=== PATIENT | male | born 1940 | race Caucasian/White ===

== ENCOUNTER → 2019-01-21 10:41 | Outpatient (CLI) | payer MEDICARE, SELFPAY ==
--- NOTE | 2019-01-21 10:45 | AS_ITS ---
Renal Arterial Duplex Indications: 405.91 Unspecified renovascular hypertension. Elevated kidney function IMPRESSIONS 1. Normal bilateral renal artery evaluation. 2. 2.6 cm indeterminant lesion seen left kidney mid pole, suggest CT without and with contrast with delayed images. Bilateral cortical thinning and scarring History: Risk factors: Extobacco use. Hypertension. Coronary artery disease. Complete renal arterial duplex. Duplex scan and Doppler flow study including spectral analysis, color and haines scale imaging. Height: Height: 172.7cm. Height: 68in. Weight: Weight: 80.7kg. Weight: 177.6lb. Body mass index: BMI: 27.1kg/m^2. Body surface area: BSA: 1.98m^2. Location: Vascular laboratory. Patient status: Outpatient. Findings: Cyst in the right mid pole cortex. Dimensions: 1cm (L). Tables: Arterial flow: + +--------+--------+ Location V sys V ed + +--------+--------+ Right renal - proximal 135cm/s 49.9cm/s + +--------+--------+ Right renal - mid 132cm/s 51.6cm/s + +--------+--------+ Right renal - distal 58.8cm/s 23cm/s + +--------+--------+ Left renal - proximal 117cm/s 34.2cm/s + +--------+--------+ Left renal - mid 86.7cm/s 30.4cm/s + +--------+--------+ Left renal - distal 76.5cm/s 25.5cm/s + +--------+--------+ Right renal-origin 154cm/s 40.1cm/s + +--------+--------+ Left renal-origin 137cm/s 38.1cm/s + +--------+--------+ Aorta-prox 76.3cm/s -------- + +--------+--------+ Renal anatomy: + +-----+------+ Left Right + +-----+------+ Long axis 13cm 12.1cm + +-----+------+ Short axis 6.2cm 7cm + +-----+------+ Cortical thickness 1.5cm 1.3cm + +-----+------+ Velocity ratios: + +-----+ V sys + +-----+ Right renal/aortic 2 + +-----+ Left renal/aortic 1.8 + +-----+ (Report amended ) Electronically signed by: Milo Loco [id number]
== END ==
PROVIDERS: PCP Internal Medicine; Visit Provider Internal Medicine
DX: N18.3 Chronic kidney disease, stage 3 (moderate) (principal)
CPT/HCPCS: 93976

== ENCOUNTER → 2019-01-27 10:52 | Outpatient (CLI) | payer MEDICARE, SELFPAY ==
--- NOTE | 2019-01-27 10:56 | CT_ITS ---
CT abdomen wo/w con CLINICAL INDICATION: Left renal mass ITS.REASON: x ORDERING PHYSICIAN: Jerson Bright MD PATIENT AGE: 78 years COMPARISON: None TECHNIQUE: Axial images obtained without and with contrast sagittal and coronal reformats. All CT scans at the facility use one or more dose reduction, viz: automated exposure control, ma/kV adjustment per patient size (including targeted exams where dose is matched to indication, i.e. head), or iterative reconstruction technique. PROCEDURE: Oral Contrast: None IV Contrast: 75 mL's Optiray 350. FINDINGS: There are dependent changes in the lung bases. Artifact present from RV pacer. The liver, gallbladder, spleen, adrenal glands, and pancreas have an unremarkable appearance without and with contrast. The right kidney has an unremarkable appearance. There is cortical scarring of the left kidney greater along the posterior aspect. There are parapelvic left renal cysts. No suspicious solid lesions are evident. The abnormality noted on the ultrasound may have been due to artifact created by the scarring. Although the study was not performed as a CT angiography, the left renal artery is noted to be small. There are 2 small left renal arteries. There is calcific plaque at the ostium of the larger of the 2 renal arteries. Facet arthritic changes are present in the lumbar spine with a spondylitic defect involving L4 on the right. No evidence of spondylolisthesis. IMPRESSION: 1. No suspicious renal mass evident. The abnormality noted on the recent renal duplex is probably related to artifact created by the renal cortical scarring with lobulation of normal renal cortex. There are small left parapelvic renal cysts. 2. There are 2 small left renal arteries with calcific plaque at the ostium of the larger of the 2 arteries.
== END ==
PROVIDERS: PCP Internal Medicine; Visit Provider Internal Medicine
DX: N28.89 Other specified disorders of kidney and ureter (principal)
CPT/HCPCS: 74170; Q9967

== ENCOUNTER → 2019-04-03 07:15 | Outpatient (CLI) | payer MEDICARE, SELFPAY ==
--- NOTE | 2019-04-03 07:19 | NM_ITS ---
History:chest pain, fatigue Procedure: Patient received a 0.4 mg of intravenous Lexiscan, resting heart rate 71 bpm, resting blood pressure 151/96, with Lexiscan maximum heart rate achieve was 72 bpm which is less than 85 % of the maximum predicted heart rate and blood pressure was 112/75. WIth Lexiscan patient denied any complaint of chest pain. Electrocardiogram: Resting electrocardiogram showed electronically paced rhythm, with Lexiscan there is less than 1.5mm ST segment depression noted from the baseline EKG. The EKG portion of the Lexiscan Myoview is nondiagnostic. Cardias Stress and Resting SPECT images: Cardias Stress and Resting SPECT images were obtained using technetium 99m Myoview 32.1 mCi stress and 10.69 mCi at rest. Gated SPECT further analysis of segmental wall motion and calculation of ejection fraction also done. Cardiac stress and resting SPECT show fixed defect involving the inferior, posterobasal and inferior apical wall consistent with area of myocardial scarring without significant zahida-infarct ischemia., the computer derived ejection fraction is over 54% with moderate hypokinesis involving the inferior, posterior basal and apical wall. Right ventricle is normal size and contractility. Conclusion: 1. The EKG portion of the Lexiscan Myoview is nondiagnostic. 2. Scintigraphic evidence of myocardial scarring involving the inferior, posterior basal and and inferior apical wall without significant zahida-infarct ischemia, computer derived ejection fraction is over 54% with segmental wall motion abnormality as described above. 3. Abnormal Lexiscan Myoview study.
--- NOTE | 2019-04-03 07:19 | CA_ITS ---
PROCEDURE: 2-D M-mode and color Doppler study INDICATIONS FOR THE TEST: Chest painX COPD Heart Murmur Tobacco Smoking Palpitations Fatigue Syncope Edema HypertensionXDiabetes Mellitus Rheumatic Fever SOBXDOE Obesity HyperlipidemiaX Family History HD Additional History DIZZINESS,PP PATIENT INFORMATION HEIGHT: 69 WEIGHT:180 GENDER: Male B/P:135/96 2-D/M-MODE INTERPRETATION: 2-D MEASUREMENTS OBSERVED VALUES IN CMS Right Ventricular Dimension (RVDd) 2.3 Interventricular Septum (Thickness)(IVsd) .8 Left Ventricular Internal Dimensions(LVIDd) 5.5 Left Ventricular Posterior Wall (Thickness)(LVPWd) .9 Aortic Root 3.5 Aortic Cusp Separation 1.6 Left Atrial Dimensions (LAD) 3.0 2D 1. Left atrium is qualitatively mildly enlarged, left ventricle is normal size, mild concentric left ventricular hypertrophy, visually estimated ejection fraction of 55% with no regional wall motion abnormality. 2. The right atrium and right ventricle are mildly enlarged with normal contractility, there is a pacemaker lead seen right atrium and right ventricle. 3. The aortic valve is thickened and calcified leaflet continue to display mobility. 4. The mitral and tricuspid valve leaflets are minimally thickened. 5. The pulmonic valve is poorly visualized. 6. No significant pericardial effusion noted. DOPPLER INTERROGATION: Doppler interrogation of the aortic, mitral and tricuspid valvular presence of mild mitral and tricuspid regurgitation. Calculated right ventricular systolic pressure is 46 mmHg consistent with moderate pulmonary hypertension, Doppler evidence of impaired LV relaxation seen. No tissue Doppler performed. CONCLUSION: 1. Mildly left atrium, normal left ventricular size, mild concentric left ventricular hypertrophy, visually estimated ejection fraction of 55% with no regional wall motion abnormality, Doppler evidence of impaired relaxation seen, there is no tissue Doppler performed. 2. Mild mitral and tricuspid regurgitation. 3. No significant pericardial effusion noted.
--- NOTE | 2019-04-03 08:46 | HMH.ITSHM ---
Current Home Medications as stated by this patient Martín Duncan or shared services representative. [] tamsulosin sotalol rosuvastatin omeprazole nitro clodipgrel asa amlodipine alprazolan
== END ==
PROVIDERS: PCP Internal Medicine; Visit Provider Internal Medicine
DX: I25.10 Atherosclerotic heart disease of native coronary artery without angina pectoris; I48.91 Unspecified atrial fibrillation; R42 Dizziness and giddiness; R06.02 Shortness of breath; R07.9 Chest pain, unspecified
CPT/HCPCS: 78452; 93017; 93306; A9502; J2785

== ENCOUNTER 2020-05-19 08:40 | Day surgery (SDC) | payer MEDICARE, SELFPAY ==
[2020-05-19] VITALS (11 sets, daily range): BP systolic 134–196; BP diastolic 79–133; PULSE 70; RESP 18–20; TEMP 36.7; O2SAT 88–96; BMI 26.6
--- NOTE | 2020-05-19 | IR_ITS ---
APPROVED REPORT Patient Location: Outpatient English Adjunct Faculty: JUSTIN Aragon RT (R) PROCEDURES Catheter placement in the celiac artery Celiac artery selective angiogram Catheter placement in the superior mesenteric artery Selective superior mesenteric artery angiogram Bare-metal stent deployment to the superior mesenteric artery Right selective renal angiogram Left nonselective renal angiogram INDICATION Superior mesenteric artery stenosis, Clinical mesenteric ischemia, Abnormal CTA demonstrating severe left renal artery stenosis, History of intermittent renal insufficiency Informed consent was obtained prior to the procedure. COMPLICATIONS NONE Estimated Blood Loss: LESS THAN 10 ML TECHNIQUE 1% lidocaine used anesthetize the right anterior aspect of the right wrist. The right radial artery was accessed via the Salinger technique and a 6 [place] hydrophilic sheath was placed in the right radial artery. Initially PV multi-curve catheter was used and eventually a 6 [place] multipurpose catheter was placed into the celiac artery the superior mesenteric artery the right renal artery and selective angiography was performed. Nonselective left renal artery angiography was performed. At the end of this diagnostic procedure therapeutic heparin was administered and a Choice PT extra-support wire was placed into the superior mesenteric artery. A 7 mm x 15 mm Herculink stent was deployed initially at 14 kodak and postdilated at 20 kodak to reduce the severe stenosis to 0%. Excellent angiographic results were obtained with excellent landing of the stent and excellent apposition of the stent to the vessel wall. At the end of the procedure the apparatus was removed the sheath was removed and hemostasis was achieved using TR banding patient was transferred to the postop holding in stable condition ANGIOGRAPHIC RESULTS Celiac artery is normal Superior mesenteric artery has an ostial 80% stenosis Right renal artery singular normal The left kidney has triple-vessel arterial supply. The largest of the vessels supplying 50% of the left kidney has an ostial 30 to 40% stenosis. The inferior branch which also supplies 30 to 40% of the kidney is normal. A small superior branch supplying 10% of the kidney has an ostial 70% stenosis of small caliber less than 2 mm in diameter IMPRESSION Normal celiac artery Severe superior mesenteric artery stenosis with successful stenting reducing the ostial stenosis to 0% with one bare-metal stent Normal right renal artery Mild dcn-bcmr-yvkjnwrr disease in the largest of the left renal artery supplying the left kidney Moderate to severe stenosis in a small vessel supplying 10% of the left kidney which is too small for percutaneous intervention PLAN 1. Dual antiplatelet therapy for 1 month 2. Ongoing risk factor modification 3. Continue proton pump inhibitor Electronically signed by : Jerson Bright, 05/19/2020 14:39:39
[2020-05-19 10:00] LABS: Basophils % 0.3 % (0.1-2.0); Eosinophils % 0.2 % (0.1-12.0); Hematocrit 46.5 % (42.0-52.0); Hemoglobin 15.5 g/dL (14.1-18.0); Lymphocytes # 1.1 K/mm3 (0.7-4.5); Lymphocytes % 12.3 % (10-50); Mean Corpuscular HGB Conc 33.3 g/dL (31.8-35.4); Mean Corpuscular Hemoglobin 32.3 pg (27.0-31.2); Mean Platelet Volume 7.9 fl (7.4-10.4); Monocytes # 0.6 K/mm3 (0.1-1.0); Monocytes % 6.4 % (1.7-9.3); Neutrophils # 7.5 K/mm3 (1.8-7.8); Neutrophils % 80.9 % (37.0-80.0); Platelet Count 270 K/mm3 (142-424); Red Blood Count 4.79 M/mm3 (4.60-6.20); Red Cell Distribution Width 14.7 % (11.5-17.5); White Blood Count 9.3 K/mm3 (4.8-10.8)
[2020-05-19 10:04] LABS: Chloride 103 mmol/L (98-107); Potassium 4.4 mmoL/L (3.5-5.1); Sodium 140 mmol/L (136-145)
[2020-05-19 10:07] LABS: Anion Gap 14.4 mEq/L (5-15); Blood Urea Nitrogen 24 mg/dl (9-20); Carbon Dioxide 27 mmol/L (22.0-30.0); Creatinine Clearance Estimated 59 mL/min (50-200); Estimated Glomerular Filt Rate 59 ml/min (>60); GFR (African American) 71 ML/MIN (>60)
[2020-05-19 10:08] LABS: Calcium 9.9 mg/dl (8.4-10.2); Glucose 120 mg/dl (74-100)
[2020-05-19 10:24] LABS: Coronavirus 19 IgG Antibody Negative (Negative); Coronavirus 19 IgM Antibody Negative (Negative)
--- NOTE | 2020-05-19 14:26 | HMH.PHACLD ---
Martín Duncan has received discharge medication counseling on the following medications: PATIENT IS CURRENTLY TAKING ASPIRIN DR 81 MG DAILY, CLOPIDOGREL 75 MG DAILY, ROSUVASTATIN 20 MG DAILY, AND SOTALOL 80 MG BID.
[2020-05-19 15:34] LABS: CATHL Activated Clotting Time 309 SEC (74-125)
== END 2020-05-19 15:32 | disposition home or self-care (01) ==
LOC: CATHLAB 08:41
PROVIDERS: PCP Internal Medicine; Visit Provider Internal Medicine
DX: K55.059 Acute (reversible) ischemia of intestine, part and extent unspecified (principal); I77.1 Stricture of artery; I25.10 Atherosclerotic heart disease of native coronary artery without angina pectoris; Z95.0 Presence of cardiac pacemaker; I48.0 Paroxysmal atrial fibrillation; N18.2 Chronic kidney disease, stage 2 (mild); Z79.01 Long term (current) use of anticoagulants; I88.0 Nonspecific mesenteric lymphadenitis; I12.9 Hypertensive chronic kidney disease with stage 1 through stage 4 chronic kidney disease, or unspecified chronic kidney disease
CPT/HCPCS: 36252; 37236; 80048; 85025; 85347; 86328; 99152; 99153; C1725; C1769; C1876; J1644; Q9967

== ENCOUNTER → 2020-06-08 10:39 | Outpatient (CLI) | payer MEDICARE, SELFPAY ==
[2020-06-08 10:57] LABS: Basophils # 0.1 K/mm3 (0-0.2); Basophils % 0.7 % (0.1-2.0); Eosinophils # 0.2 K/mm3 (0.0-0.4); Hematocrit 47.4 % (42.0-52.0); Hemoglobin 15.2 g/dL (14.1-18.0); Lymphocytes # 1.1 K/mm3 (0.7-4.5); Lymphocytes % 15.5 % (10-50); Mean Corpuscular HGB Conc 32.1 g/dL (31.8-35.4); Mean Corpuscular Hemoglobin 31.8 pg (27.0-31.2); Mean Platelet Volume 7.5 fl (7.4-10.4); Monocytes # 0.5 K/mm3 (0.1-1.0); Monocytes % 7.5 % (1.7-9.3); Neutrophils # 5.3 K/mm3 (1.8-7.8); Neutrophils % 73.3 % (37.0-80.0); Platelet Count 229 K/mm3 (142-424); Red Blood Count 4.78 M/mm3 (4.60-6.20); White Blood Count 7.2 K/mm3 (4.8-10.8)
[2020-06-08 11:04] LABS: Chloride 103 mmol/L (98-107); Potassium 4.2 mmoL/L (3.5-5.1); Sodium 139 mmol/L (136-145)
[2020-06-08 11:07] LABS: Anion Gap 11.2 mEq/L (5-15); Blood Urea Nitrogen 21 mg/dl (9-20); Calcium 9.1 mg/dl (8.4-10.2); Carbon Dioxide 29 mmol/L (22.0-30.0); Estimated Glomerular Filt Rate 53 ml/min (>60); GFR (African American) 65 ML/MIN (>60); Glucose 129 mg/dl (74-100)
== END ==
PROVIDERS: Visit Provider Internal Medicine
DX: I25.10 Atherosclerotic heart disease of native coronary artery without angina pectoris (principal); K55.1 Chronic vascular disorders of intestine
CPT/HCPCS: 36415; 80048; 85025

== ENCOUNTER → 2020-07-06 12:21 | Outpatient (CLI) | payer MEDICARE, SELFPAY ==
--- NOTE | 2020-07-06 12:25 | CA_ITS ---
APPROVED REPORT Watch Case Polisher: ELVI Laterality: Bilateral Study Quality: Good Indications: TIA SYNCOPE HTN CAD Doppler Spectral Velocity Analysis dICA (R) 43.80/15.40 cm/s dICA (L) 72.30/30.30 cm/s Anyi (R) 56.50/20.80 cm/s Anyi (L) 64.30/21.80 cm/s pICA (R) 46.40/17.00 cm/s pICA (L) 52.40/15.00 cm/s dCCA (R) 66.00/20.60 cm/s dCCA (L) 83.80/26.60 cm/s pCCA (R) 72.00/20.60 cm/s pCCA (L) 90.00/24.90 cm/s Vert (R) 45.40/9.30 cm/s Vert (L) 62.90/18.60 cm/s ICA/CCA 0.90 ICA/CCA 0.90 Findings Duplex evaluation demonstrates stenosis of the right proximal internal carotid artery <20% with PSV <140 cm/sec, EDV <100 cm/sec, and IC/CC Ratio <4.0.Duplex evaluation demonstrates stenosis of the left proximal internal carotid artery <20% with PSV <140 cm/sec, EDV <100 cm/sec, and IC/CC Ratio <4.0. Plaque seen bilaterally in both bulbs. Antegrade flow seen bilateral vertebral arteries. Conclusion Duplex evaluation demonstrates stenosis of the right proximal internal carotid artery <20% with PSV <140 cm/sec, EDV <100 cm/sec, and IC/CC Ratio <4.0.Duplex evaluation demonstrates stenosis of the left proximal internal carotid artery <20% with PSV <140 cm/sec, EDV <100 cm/sec, and IC/CC Ratio <4.0. Plaque seen bilaterally in both bulbs. Antegrade flow seen bilateral vertebral arteries. Electronically signed by : Milo Loco MD 07/06/2020 17:17:46
== END ==
PROVIDERS: PCP Internal Medicine; Visit Provider Internal Medicine
DX: G45.9 Transient cerebral ischemic attack, unspecified (principal); I25.10 Atherosclerotic heart disease of native coronary artery without angina pectoris; I48.0 Paroxysmal atrial fibrillation; R55 Syncope and collapse
CPT/HCPCS: 93880

== ENCOUNTER → 2020-09-13 12:38 | Outpatient (CLI) | payer MEDICARE, SELFPAY ==
[2020-09-13 13:10] LABS: Basophils # 0.1 K/mm3 (0-0.2); Eosinophils # 0.2 K/mm3 (0.0-0.4); Eosinophils % 2.2 % (0.1-12.0); Hematocrit 51.9 % (42.0-52.0); Hemoglobin 16.6 g/dL (14.1-18.0); Lymphocytes # 1.3 K/mm3 (0.7-4.5); Lymphocytes % 15.7 % (10-50); Mean Corpuscular HGB Conc 31.9 g/dL (31.8-35.4); Mean Corpuscular Hemoglobin 32.4 pg (27.0-31.2); Mean Corpuscular Volume 101.5 fl (80-94); Mean Platelet Volume 11.1 fl (7.4-10.4); Monocytes # 0.6 K/mm3 (0.1-1.0); Monocytes % 6.9 % (1.7-9.3); Neutrophils # 6.1 K/mm3 (1.8-7.8); Neutrophils % 74.2 % (37.0-80.0); Platelet Count 275 K/mm3 (142-424); Red Blood Count 5.12 M/mm3 (4.60-6.20); White Blood Count 8.2 K/mm3 (4.8-10.8)
--- NOTE | 2020-09-13 13:11 | CT_ITS ---
PROCEDURE: CT HEAD/BRAIN WO CON CLINICAL INDICATION: headache COMPARISON: No exams were available for comparison TECHNIQUE: Axial images obtained. All CT scans at the facility use one or more dose reduction, viz: automated exposure control, ma/kV adjustment per patient size (including targeted exams where dose is matched to indication, i.e. head), or iterative reconstruction technique. FINDINGS: No midline shift, mass effect, intracranial hemorrhage, hydrocephalus, or extra-axial fluid collection is evident. There is generalized atrophy with hypoattenuation of the periventricular white matter consistent with microangiopathic changes.. 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 The calvarium has an unremarkable appearance. No mastoid effusion. No sinus air-fluid level. There is moderate rightward nasal septal deviation IMPRESSION: No acute intracranial finding Dictated by: Milo Loco MD 09/13/2020 17:57 Milo Loco MD in [place] 09/13/2020 17:57
[2020-09-13 14:24] LABS: Coronavirus 19 IgG Antibody Negative (Negative); Coronavirus 19 IgM Antibody Negative (Negative)
[2020-09-13 14:25] LABS: Chloride 104 mmol/L (98-107); Potassium 4.8 mmoL/L (3.5-5.1); Sodium 141 mmol/L (136-145)
[2020-09-13 14:28] LABS: Anion Gap 13.8 mEq/L (5-15); Blood Urea Nitrogen 30 mg/dl (9-20); Calcium 10.2 mg/dl (8.4-10.2); Carbon Dioxide 28 mmol/L (22.0-30.0); Estimated Glomerular Filt Rate 59 ml/min (>60); GFR (African American) 71 ML/MIN (>60); Glucose 89 mg/dl (74-100)
== END ==
LOC: LAB 12:39 → RAD 12:59
PROVIDERS: PCP Internal Medicine; Visit Provider Internal Medicine
DX: R51.9 Headache, unspecified (principal); Z01.812 Encounter for preprocedural laboratory examination; Z11.52 Encounter for screening for COVID-19; R07.9 Chest pain, unspecified
CPT/HCPCS: 36415; 70450; 80048; 85025; 86328

== ENCOUNTER 2020-09-14 08:20 | Day surgery (SDC) | payer MEDICARE, SELFPAY ==
[2020-09-14] VITALS (11 sets, daily range): BP systolic 102–132; BP diastolic 53–86; PULSE 70–75; RESP 16–20; TEMP 36.6–36.8; O2SAT 90–97; BMI 26.1
--- NOTE | 2020-09-14 07:22 | IR_ITS ---
APPROVED REPORT Patient Location: Outpatient Grease Maker: JUSTIN Aragon RT (R) PROCEDURES Right heart catheterization Left heart catheterization Left ventriculogram Selective coronary angiogram INDICATION Pulmonary hypertension, Worsening dyspnea, Known coronary artery disease with coronary stenting, Accelerated angina class IV Informed consent was obtained prior to the procedure. COMPLICATIONS None Estimated Blood Loss: less than 10ml TECHNIQUE One percent lidocaine was used to anesthetize the right anterior aspect of the right wrist. The right radial artery was accessed via the Seldinger technique and a 6 [place] hydrophilic sheath was placed in the right radial artery. Following this one percent lidocaine was used to anesthetize the right anterior aspect of the right neck. The right internal jugular vein was accessed via the Seldinger technique and a 7 [place] sheath was placed in the right internal jugular vein. Following this an arterial cocktail was administered using 5000U heparin, 2.5 mg verapamil, 1mg Lidocaine and 800mcg nitroglycerin into the right radial sheath. A trap catheter was used to perform left heart catheterization left ventriculogram and selective coronary angiography while a [place] catheter was used to perform right heart catheterization. Saturations were obtained in the pulmonary artery and right atrium. At the end of the procedure the arterial sheath was removed good hemostasis was achieved using Traclet band. Patient was transferred to the postop holding area in stable condition for venous sheath removal. ANGIOGRAPHIC RESULTS The left main artery Normal The left anterior descending artery Is proximally normal followed by a mid vessel stent which is widely patent free of in-stent restenosis with excellent proximal distal transitioning The circumflex artery Nondominant normal The right coronary artery Dominant normal with SONU II flow The SINGH ventriculogram reveals Normal 60% The left ventricular end-diastolic pressure Less than 10 mmHg Right atrial pressure 4 mmHg Pulmonary artery pressure 15/10 mmHg Pulmonary artery occlusion pressure 8 mmHg Right atrial saturation 81% Pulmonary artery saturation 80% IMPRESSION Widely patent coronary arteries with mild degree of endothelial dysfunction involving the dominant right coronary artery Normal ejection fraction Normal pulmonary pressures Normal filling pressures PLAN 1. Evaluation of noncardiac symptomatology Electronically signed by : Jerson Bright, 09/14/2020 10:15:35
--- NOTE | 2020-09-14 08:27 | CA_ITS ---
APPROVED REPORT EXAM: Comprehensive 2D, Doppler, and color-flow Echocardiogram Lead [employer] Printing: Steph RCS, RVS Ht: 5 ft 9 in Wt: 177lbs BSA: 1.96 BP: 105/73 mmHg Indications: A-FIB, CAD, CABG, PACER, GERD 2D Dimensions LVDs 3.89 cm LVOT 2.09 cm (M/F) 1.5-2.5 M-Mode Dimensions LA Diam 4.08 cm (1.9-4.0) LVDd 4.71 cm (3.5-5.7) Ao Diam 3.16 cm (2.0-3.7) LVDs 3.46 cm (3.5-5.7) IVSd 0.99 cm (0.6-1.1) PWd 1.03 cm (0.6-1.1) EF (Teich) 51.90% EPSs 0.88 cm FS 26.50% EDV (Teich) 102.90 mL ESV (Teich) 49.50 mL Aortic Valve AO Peak GR. 3.60 mmHg Tricuspid Valve TR P. Velocity 236.00 cm/s RAP Estimate 10.00 mmHg RVSP 32.20 mmHg Left Ventricle Left atrium is mildly enlarged, left ventricle is normal size, mild concentric left ventricular hypertrophy, visually estimated ejection fraction 50%, there is abnormal septal motion. Diastolic parameters are inconclusive. Right Ventricle Right atrium and right ventricle is normal size and contractility, pacemaker leads in the right ventricle. Aortic Valve Aortic valve is thickened and calcified, there is no aortic stenosis or aortic insufficiency. Mitral Valve Mitral valve is grossly normal, there is mild mitral regurgitation. Tricuspid Valve Tricuspid valve is grossly normal, there is mild tricuspid regurgitation. Tricuspid regurgitation jet velocity is inadequate for calculation of the right ventricular systolic pressure. Pulmonic Valve Pulmonic valve is poorly visualized. Great Vessels Aortic root is normal size. Pericardium No significant pericardial effusion noted. Conclusion 1. Mildly enlarged left atrium, normal left ventricular size, mild concentric left ventricular hypertrophy, visually estimated ejection fraction 50% with abnormal septal motion. Diastolic parameters are inconclusive. 2. Mild mitral and tricuspid regurgitation. 3. No significant pericardial effusion noted. Electronically signed by : Anibal Reyes, 09/14/2020 21:10:46
[2020-09-14 10:41] LABS: CATHL Arterial O2 SAT 80 % (90-100); CATHL Venous O2 SAT 81.1 % (75-80)
== END 2020-09-14 13:29 | disposition home or self-care (01) ==
LOC: CATHLAB 08:22
PROVIDERS: PCP Internal Medicine; Visit Provider Internal Medicine
DX: I25.118 Atherosclerotic heart disease of native coronary artery with other forms of angina pectoris; I27.20 Pulmonary hypertension, unspecified; R06.02 Shortness of breath; I10 Essential (primary) hypertension; I48.0 Paroxysmal atrial fibrillation; Z95.0 Presence of cardiac pacemaker; E11.9 Type 2 diabetes mellitus without complications; Z88.0 Allergy status to penicillin; Z88.8 Allergy status to other drugs, medicaments and biological substances; Z79.02 Long term (current) use of antithrombotics/antiplatelets; Z79.84 Long term (current) use of oral hypoglycemic drugs; Z79.899 Other long term (current) drug therapy; Z79.82 Long term (current) use of aspirin
CPT/HCPCS: 82810; 93306; 93460; 99152; C1725; C1769; C1894; J1644; Q9967

== ENCOUNTER → 2020-09-28 11:58 | Outpatient (CLI) | payer MEDICARE, SELFPAY ==
[2020-09-28 12:01] LABS: Microscopic, Urine URINE MICROSCOPIC (MICROSCOPIC)
[2020-09-28 12:26] LABS: Appearance,Urine CLEAR (Clear); Bilirubin,Urine Negative (Negative); Blood, Urine Negative (Negative); Color,Urine YELLOW (Yellow); Glucose,Urine (UA) 3+ (Negative); Ketones,Urine Negative (Negative); Leukocyte Esterase,Urine Negative (Negative); Nitrate,Urine Negative (Negative); PH,Urine 6.5 (5.0-8.5); Protein,Urine Negative (Negative); Urobilinogen,Urine 0.2 EU/dl (0.2)
[2020-09-28 13:06] LABS: C-Reactive Protein 52.3 mg/L (0-4)
[2020-09-28 13:35] LABS: RBC,Urine Occasional #/hpf (0-3)
[2020-09-28 14:29] LABS: Erythrocyte Sedimentation Rate 18 mm/hr (0-20)
== END ==
PROVIDERS: Visit Provider Internal Medicine
DX: N18.30 Chronic kidney disease, stage 3 unspecified; R32 Unspecified urinary incontinence; E78.2 Mixed hyperlipidemia; I11.9 Hypertensive heart disease without heart failure; I48.0 Paroxysmal atrial fibrillation; I65.23 Occlusion and stenosis of bilateral carotid arteries; K21.9 Gastro-esophageal reflux disease without esophagitis; K55.1 Chronic vascular disorders of intestine; Z95.0 Presence of cardiac pacemaker
CPT/HCPCS: 36415; 81001; 85651; 86140; 87086

== ENCOUNTER 2021-07-29 08:02 | Day surgery (SDC) | payer MEDICARE, SELFPAY ==
[2021-07-29 08:14] VITALS: BMI 25.8
--- NOTE | 2021-07-29 08:17 | CA_ITS ---
APPROVED REPORT EXAM: Comprehensive 2D, Doppler, and color-flow Echocardiogram Computer Forensic Specialist: Promise Urrutia RT(R) Ht: 5 ft 9 in Wt: 175lbs BSA: 1.95 BP: 148/90 mmHg Indications: Fevers unknown origin, HTN, hyperlipidemia, AFIB, CAD, rule out endocarditis. Procedure After obtaining informed consent, patient underwent transesophageal echo in the Patient Access. Type of Sedation : Conscious Sedation Transesophageal probe was inserted and advanced into esophagus without difficulty by Dr. Brady Souza. The CLYDE was performed without complications. Throughout the procedure, the blood pressure, pulse oximetry, cardiac rhythm, and rate were monitored. The patient tolerated the procedure without adverse effects. Recovery from conscious sedation was uneventful and vital signs were stable. Left Ventricle Left ventricle is normal size, mild concentric left ventricular hypertrophy, visually estimated ejection fraction 50% with no regional wall motion abnormality in the obtained views. Right Ventricle Right atrium and right ventricle are normal size and contractility. Pacemaker lead seen right atrium and right ventricle, there is no obvious vegetation seen on the pacemaker leads. Atria Left atrium is mildly enlarged. Left atrial appendage free of thrombus. Right atrium is normal size. Intra-atrial septum is intact, there is no flow across the interatrial septum, agitated saline contrast study fails 25 intracardiac shunt. Aortic Valve Aortic valve is minimally thickened and calcified without aortic stenosis, there is trace aortic insufficiency. Mitral Valve Mitral valve is grossly normal, there is trace mitral regurgitation. Tricuspid Valve Tricuspid valve is grossly normal. There is mild tricuspid regurgitation. Pulmonic Valve Pulmonic valve is grossly normal. Great Vessels Aortic root is normal size. No significant pericardial effusion noted. Inferior vena cava is not well visualized. Conclusion 1. Mildly enlarged left atrium, normal left ventricular size, mild concentric left ventricular hypertrophy, visually estimated ejection fraction 50% with no obvious regional wall motion abnormality. 2. Trace aortic, mild mitral and tricuspid regurgitation. 3. Pacemaker lead seen in right atrium and right ventricle, there is no obvious valvular or vegetation seen on the pacemaker lead. 4. Agitated saline contrast study fails to identify intracardiac shunt. 5. No significant pericardial effusion noted. Electronically signed by : Anibal Reyes MD 07/29/2021 09:45:59
[2021-07-29 08:31] VITALS: PULSE 70
[2021-07-29 08:32] VITALS: BP 171/105; PULSE 70; RESP 18; O2SAT 95
[2021-07-29 08:39] LABS: Coronavirus 19, PCR Not Detected (NotDetected); Influenza A, PCR Not Detected (NotDetected); Influenza B, PCR Not Detected (NotDetected)
[2021-07-29 08:43] LABS: Basophils % 0.4 % (0.1-2.0); Chloride 104 mmol/L (98-107); Eosinophils % 0.3 % (0.1-12.0); Hematocrit 41.2 % (42.0-52.0); Hemoglobin 13.7 g/dL (14.1-18.0); Lymphocytes # 1.1 K/mm3 (0.7-4.5); Lymphocytes % 16.2 % (10-50); Mean Corpuscular HGB Conc 33.2 g/dL (31.8-35.4); Mean Corpuscular Hemoglobin 32.6 pg (27.0-31.2); Mean Platelet Volume 7.8 fl (7.4-10.4); Monocytes # 0.7 K/mm3 (0.1-1.0); Neutrophils # 4.8 K/mm3 (1.8-7.8); Platelet Count 227 K/mm3 (142-424); Potassium 4.2 mmoL/L (3.5-5.1); Red Blood Count 4.21 M/mm3 (4.60-6.20); Red Cell Distribution Width 15.2 % (11.5-17.5); Sodium 135 mmol/L (136-145); White Blood Count 6.6 K/mm3 (4.8-10.8)
[2021-07-29 08:46] LABS: Blood Urea Nitrogen 23 mg/dl (9-20); Creatinine Clearance Estimated 61 mL/min (50-200); Estimated Glomerular Filt Rate 65 ml/min (>60); GFR (African American) 78 ML/MIN (>60)
[2021-07-29 08:47] LABS: Anion Gap 10.2 mEq/L (5-15); Calcium 8.9 mg/dl (8.4-10.2); Carbon Dioxide 25 mmol/L (22.0-30.0); Glucose 198 mg/dl (74-100)
[2021-07-29 08:55] VITALS: BP 112/67; PULSE 70; RESP 18; O2SAT 94
[2021-07-29 09:00] VITALS: BP 116/67; PULSE 70; RESP 18; O2SAT 98
[2021-07-29 09:30] VITALS: BP 133/80; PULSE 74; RESP 17; O2SAT 96
--- NOTE | 2021-07-29 09:33 | P.PN_ITS ---
[facility] Anesthesia Checklist - Structural Data Admitted From: Home Planned Operative Procedure/s: CLYDE Consent for Planned Operative Procedure(s) Verified: Yes Verified Documents: Surgical Consent - NPO Status Verified Time NPO: 00:00 - Chart Verification Results Verified: CBC, BMP - Cardiovascular Assessment Heart Sounds: S1 & S2 - Airway Assessment C-Spine Mobility Assessed: Yes TMJ Mobility Assessed: Yes Dentition: Good Dentition - Neurological Assessment Level of Consciousness: Awake, Alert, Appropriate - Anesthesia Plan Anesthesia Risk discussed: Yes ASA Class: III Anesthesia Type: General - Preoperative Comments Pre-Operative Comments: none [facility] History Medical History: Reports:: Coronary Artery Disease, Diabetes Mellitus Type 2, Gastroesophageal Reflux Disease(GERD), Hyperlipidemia, Hypertension, Internal Pacemaker Denies:: Cancer, Diabetes Mellitus Type 1, MRSA, Seizures *Have you ever received a pneumonia vaccine?: No *Have you received a flu vaccine this season?: No Other Medical History: Reports: Arthritis Anesthesia experience/problems:: none Laterality Cases: Left: Arthroscopy Hip Other Surgeries: Yes: No Previous Surgery, Angiogram, Cardiac Catheterization, Colonoscopy, Coronary Stent, Pacemaker Amputation: No Fractures: No - *Social History Last grade of school completed: Some college Smoking Status: Never smoker Alcohol Intake: current Alcohol Intake Frequency:: 0-2 drinks per day Substance Use Type: denies use *Occupational Status:: retired Housing: house Household Members: spouse *Travel in the last 8 weeks: None Family Hx:: Heart Attack, Diabetes, Hyperlipidemia, Hypertension, Stroke
[2021-07-29 10:17] VITALS: BP 159/100; PULSE 70; RESP 18; O2SAT 96
== END 2021-07-29 10:32 | disposition home or self-care (01) ==
LOC: CATHLAB 08:03
PROVIDERS: PCP Internal Medicine; Visit Provider Internal Medicine Cardiovascular Disease
DX: D86.9 Sarcoidosis, unspecified (principal); E78.2 Mixed hyperlipidemia; I10 Essential (primary) hypertension; I11.9 Hypertensive heart disease without heart failure; I25.10 Atherosclerotic heart disease of native coronary artery without angina pectoris; I48.0 Paroxysmal atrial fibrillation; R42 Dizziness and giddiness; R50.9 Fever, unspecified; R55 Syncope and collapse; Z95.0 Presence of cardiac pacemaker; Z20.822 Contact with and (suspected) exposure to COVID-19
CPT/HCPCS: 80048; 85025; 93312; C9803; U0003; U0005

== ENCOUNTER → 2021-12-05 13:14 | Outpatient (CLI) | payer MEDICARE, SELFPAY | PROVIDERS: Visit Provider Internal Medicine | DX: Z01.812 Encounter for preprocedural laboratory examination; Z11.52 Encounter for screening for COVID-19; R42 Dizziness and giddiness; E78.2 Mixed hyperlipidemia; I25.10 Atherosclerotic heart disease of native coronary artery without angina pectoris; I48.0 Paroxysmal atrial fibrillation; I11.9 Hypertensive heart disease without heart failure; Z45.010 Encounter for checking and testing of cardiac pacemaker pulse generator [battery] | CPT/HCPCS: C9803; U0003; U0005 ==

== ENCOUNTER 2021-12-07 09:16 | Day surgery (SDC) | payer MEDICARE, SELFPAY ==
--- NOTE | 2021-12-07 | IR_ITS ---
APPROVED REPORT Patient Location: Outpatient Welding Machine Tender: JUSTIN Hurtado RT (R) PROCEDURES Pocket Revision Removal of old Pacemaker Implant of Permanent Pacemaker INDICATION END OF BATTERY LIFE Informed consent was obtained prior to the procedure. COMPLICATIONS NONE Estimated Blood Loss: LESS THAN 10 ML TECHNIQUE 1% lidocaine with epinephrine used to anesthetize the left anterior aspect of the chest. Scalpel was used to make the initial cutaneous incision and then used to dissect down to the existing pacemaker generator. The generator was removed from the existing pocket. Digital manipulation was required along with intermittent usage of scalpel in order to revise the pocket. The leads were removed from the old generator. The new generator was screwed to the existing leads and secured into place. Electronic interrogation proved acceptable thresholds and voltage within the lead. The pacemaker was secured using 3-0 silk into the newly revised pocket. Monocryl was used to close the subcutaneous tissue and then yuly were placed on the cutaneous area in order to approximate the incision. Patient was transferred to the postop holding area in stable condition. INTERROGATION Generator Model number: Skyhood MRI DR IS-1 L113 Generator Serial number: [id number] Atrial lead model number: 1882TC Atrial lead serial number: [id number] P-wave: 4.5 mV Impedence: 445 OHMS Threshold: 0.6V @ 0.4ms Right Ventricular lead model number: 1688TC Right Ventricular lead serial number: [id number] R-wave: 15.8mV Impedence: 611 OHMS Threshold: 1.2 V @ 0.4 ms Pacing Parameters: Mode: DDDR Base/Max Track:60 ppm / 130 ppm No diaphragmatic stimulation at 10 volts. IMPRESSION Succesful Pocket Revision Successful Removal of old Pacemaker Succesful Implant of Permanent Pacemaker PLAN 1. POST OP WOUND CARE Electronically signed by : Jerson Bright MD 12/08/2021 12:07:26
[2021-12-07 09:30] VITALS: BMI 26.2
[2021-12-07 09:56] VITALS: PULSE 70
[2021-12-07 09:56] LABS: Basophils # 0.3 K/mm3 (0-0.2); Basophils % 2.9 % (0.1-2.0); Eosinophils # 0.1 K/mm3 (0.0-0.4); Lymphocytes # 0.8 K/mm3 (0.7-4.5); Lymphocytes % 6.7 % (10-50); Mean Corpuscular HGB Conc 32.5 g/dL (31.8-35.4); Mean Corpuscular Hemoglobin 32.3 pg (27.0-31.2); Mean Corpuscular Volume 99.2 fl (80-94); Mean Platelet Volume 7.6 fl (7.4-10.4); Monocytes # 0.7 K/mm3 (0.1-1.0); Monocytes % 6.1 % (1.7-9.3); Neutrophils # 9.8 K/mm3 (1.8-7.8); Neutrophils % 83.3 % (37.0-80.0); Platelet Count 218 K/mm3 (142-424); Red Blood Count 4.64 M/mm3 (4.60-6.20); Red Cell Distribution Width 15.1 % (11.5-17.5); White Blood Count 11.8 K/mm3 (4.8-10.8)
--- NOTE | 2021-12-07 10:52 | HMH.ANESCL ---
[facility] Anesthesia Checklist - Patient Identification Patient Identification: Arm Band - Structural Data Admitted From: Home Planned Operative Procedure/s: Pacemaker Generator Change Consent for Planned Operative Procedure(s) Verified: Yes Verified Documents: Surgical Consent, History and Physical - NPO Status Verified Time NPO: 00:00 - Additional verifications Anesthesia Reactions: No - Airway Assessment C-Spine Mobility Assessed: Yes (mp2) TMJ Mobility Assessed: Yes Dentition: Good Dentition - Neurological Assessment Level of Consciousness: Awake, Alert - Anesthesia Plan Anesthesia Risk discussed: Yes Anesthesia Plan: Verified ASA Class: III Anesthesia Type: MAC [facility] History I have reviewed the patient's past medical history: Yes Medical History: Reports:: Coronary Artery Disease, Diabetes Mellitus Type 1, Diabetes Mellitus Type 2, Gastroesophageal Reflux Disease(GERD), Hyperlipidemia, Hypertension, Internal Pacemaker Denies:: Cancer, MRSA, Seizures *Have you ever received a pneumonia vaccine?: Yes *Have you received a flu vaccine this season?: Yes Other Medical History: Reports: Arthritis Anesthesia experience/problems:: nac Laterality Cases: Left: Arthroscopy Hip Other Surgeries: Yes: Angiogram, Cardiac Catheterization, Colonoscopy, Coronary Stent, Pacemaker Amputation: No Fractures: No - *Social History Last grade of school completed: High school graduate Smoking Status: Former smoker Alcohol Intake: current Alcohol Intake Frequency:: 0-2 drinks per day Substance Use Type: denies use *Occupational Status:: retired Housing: house Household Members: spouse *Travel in the last 8 weeks: None Family Hx:: Heart Attack, Diabetes, Hyperlipidemia, Hypertension, Stroke
[2021-12-07 10:53] LABS: POC Glucose,Bedside 163 (70-110)
[2021-12-07 11:58] VITALS: BP 108/69; PULSE 60; RESP 18; TEMP 36.1; O2SAT 95
[2021-12-07 12:15] VITALS: BP 124/79; PULSE 60; RESP 18; O2SAT 96
[2021-12-07 12:30] VITALS: BP 132/80; PULSE 60; RESP 18; O2SAT 97
[2021-12-07 12:45] VITALS: BP 129/77; PULSE 60; RESP 18; O2SAT 96
[2021-12-07 13:15] VITALS: BP 108/78; PULSE 60; RESP 18; O2SAT 94
== END 2021-12-07 13:38 | disposition home or self-care (01) ==
LOC: CATHLAB 09:18
PROVIDERS: PCP Internal Medicine; Visit Provider Internal Medicine
DX: Z45.010 Encounter for checking and testing of cardiac pacemaker pulse generator [battery] (principal); I25.10 Atherosclerotic heart disease of native coronary artery without angina pectoris; I48.0 Paroxysmal atrial fibrillation; E11.9 Type 2 diabetes mellitus without complications; K21.9 Gastro-esophageal reflux disease without esophagitis; Z79.84 Long term (current) use of oral hypoglycemic drugs; Z82.49 Family history of ischemic heart disease and other diseases of the circulatory system; I11.9 Hypertensive heart disease without heart failure; T82.191A Other mechanical complication of cardiac pulse generator (battery), initial encounter
CPT/HCPCS: 33228; 82962; 85025; C1785

== ENCOUNTER → 2023-04-16 11:58 | Outpatient (CLI) | payer MEDICARE, SELFPAY ==
--- NOTE | 2023-04-16 12:01 | CA_ITS ---
APPROVED REPORT EXAM: Comprehensive 2D, Doppler, and color-flow Echocardiogram Chronograph Operator: Emily Petty RDCS Ht: 5 ft 9 in Wt: 181lbs BSA: 1.98 BP: 132/72 mmHg Indications: CP,SOA,CAD,PP,PAF 2D Dimensions LVOT 1.92 cm (M/F) 1.5-2.5 M-Mode Dimensions RVDd 2.64 cm (0.9-2.6) LA Diam 3.66 cm (1.9-4.0) LVDd 5.29 cm (3.5-5.7) Ao Diam 3.62 cm (2.0-3.7) LVDs 3.97 cm (3.5-5.7) IVSd 0.89 cm (0.6-1.1) PWd 0.89 cm (0.6-1.1) EF (Teich) 49.00% FS 25.00% EDV (Teich) 134.80 mL TAPSE 1.58 (<1.7) ESV (Teich) 68.80 mL LV Diastology E Decel Time 303.00 (160-240 msec) E/A Ratio 0.6 MED E' 3.60 (< 7 cm/sec) E'/MED E' Ratio 14.14 (>14) LAT E' 6.50 (<10 cm/sec) E/LAT E' Ratio 7.83 (>14) Aortic Valve AI PHT 708.00 ms Mitral Valve MV E Max Suleman. 51.00 (40-130 cm/s) MV A Velocity 92.00 (40-130 cm/s) E/A Ratio 0.55 MV Decel. Time 303.00 (160-240 ms) MV PHT 89.00 ms Tricuspid Valve TR P. Velocity 254.00 cm/s RAP Estimate 10.00 mmHg RVSP 35.70 mmHg Left Ventricle The left ventricle is normal size. The left ventricular systolic function is normal. The left ventricular ejection fraction is within the normal range. There is increased LV wall thickness, There is normal LV segmental wall motion. Transmitral Doppler flow pattern suggests impaired LV relaxation. LVEF is 55%. Right Ventricle The right ventricle is normal size. The right ventricular systolic function is normal. Atria The left atrium size is normal. The right atrium size is normal. There is no Doppler evidence of interatrial shunt. Aortic Valve The aortic valve is mildly thickened. There is no aortic valvular stenosis. Mild aortic regurgitation. Mitral Valve The mitral valve is normal in structure. No evidence of mitral valve stenosis. There is no mitral valve regurgitation noted. Tricuspid Valve The tricuspid valve leaflets are thin and pliable. Mild tricuspid regurgitation. RVSP is 28 mmHg + RA pressure. Pulmonic Valve The pulmonary valve is normal in structure. Trace pulmonic regurgitation. Great Vessels The aortic root is normal in size. The ascending aorta is normal in size. The IVC is not well visualized. Pericardium There is no pericardial effusion. Conclusion Normal biventricular systolic function. Mild AI. Mild TR. RVSP is 28 mmHg + RA pressure. Electronically signed by : Terra Dickens, 04/17/2023 14:24:54
== END ==
PROVIDERS: PCP Internal Medicine; Visit Provider Internal Medicine
DX: R06.02 Shortness of breath; R07.9 Chest pain, unspecified; I25.118 Atherosclerotic heart disease of native coronary artery with other forms of angina pectoris; I11.9 Hypertensive heart disease without heart failure; I48.0 Paroxysmal atrial fibrillation; I27.20 Pulmonary hypertension, unspecified; E78.5 Hyperlipidemia, unspecified; I60.9 Nontraumatic subarachnoid hemorrhage, unspecified; I65.29 Occlusion and stenosis of unspecified carotid artery; I95.1 Orthostatic hypotension; K55.1 Chronic vascular disorders of intestine; N18.30 Chronic kidney disease, stage 3 unspecified
CPT/HCPCS: 93306

== ENCOUNTER 2024-05-07 12:24 | Outpatient (CLI) | payer MEDICARE, SELFPAY ==
--- NOTE | 2024-05-07 12:47 | CA_ITS ---
APPROVED REPORT EXAM: Comprehensive 2D, Doppler, and color-flow Echocardiogram Roller Presser Operator: Liane Wren CRT Ht: 5 ft 9 in Wt: 171lbs BSA: 1.93 BP: 125/68 mmHg Indications: CVA/TIA, Hyperlipidemia, Hypertension/HDD, pacer 2D Dimensions Left Atrium 4.00 cm LVEF (Monreal's) 56.40 % LVOT 2.03 cm (M/F) 1.5-2.5 LV Volume 96.90 mL LV Volume Index 50.213866 mL/m2 M: 34 - 74 LA Volume 43.40 mL LA Volume Index 22.357917 mL/m2 (M/F) 16-34 EF AP4 56.40 % EF AP2 56.7 % EF BP 56.4 % GL Strain -19.2 % M-Mode Dimensions RVDd 3.04 cm (0.9-2.6) LVDd 4.44 cm (3.5-5.7) Ao Diam 4.04 cm (2.0-3.7) LVDs 2.73 cm (3.5-5.7) IVSd 1.86 cm (0.6-1.1) PWd 0.87 cm (0.6-1.1) EF (Teich) 69.00% FS 38.50% EDV (Teich) 89.60 mL TAPSE 2.36 (<1.7) ESV (Teich) 27.80 mL LV Diastology E Decel Time 250 (160-240 msec) E/A Ratio 0.60 MED E' 6.2 (>= 7 cm/sec) MED A' 10.00 cm/s E'/MED E' Ratio 10.37 (<= 14) LAT E' 7.0 (>= 10 cm/sec) LAT A' 12.90 cm/s E/LAT E' Ratio 9.19 (<= 14) Aortic Valve AoV Peak Suleman. 131.0 (50-130 cm/s) AI PHT 513.00 ms AO Peak GR. 6.90 mmHg Mitral Valve MV E Max Suleman. 64.0 (40-130 cm/s) MV A Velocity 107.0 (40-130 cm/s) E/A Ratio 0.60 MV Decel. Time 250 (160-240 ms) Tricuspid Valve TR P. Velocity 293.00 cm/s RAP Estimate 10.00 mmHg RVSP 44.20 mmHg Left Ventricle The left ventricle is normal size. The left ventricular systolic function is normal. The left ventricular ejection fraction is within the normal range. There is increased LV wall thickness. There is normal LV segmental wall motion. Transmitral Doppler flow pattern suggests impaired LV relaxation. LVEF is 55%. Right Ventricle Right ventricle is mildly dilated. The right ventricular systolic function is normal. There is a device lead in the right ventricle. Atria Left atrium is mildly dilated. Right atrium is mildly dilated. There is no Doppler evidence of interatrial shunt. Aortic Valve The aortic valve is mildly thickened. There is no aortic valvular stenosis. Mild aortic regurgitation. Mitral Valve The mitral valve is mildly thickened. Mild mitral regurgitation. No evidence of mitral valve stenosis. Tricuspid Valve The tricuspid valve leaflets are thin and pliable. Moderate tricuspid regurgitation. RVSP is 30-35 mmHg. Pulmonic Valve The pulmonary valve is normal in structure. Mild pulmonic regurgitation. Great Vessels The aortic root is normal in size. The ascending aorta is normal in size. IVC is normal in size and collapses >50% with inspiration. Pericardium There is no pericardial effusion. Other Information Study Quality: Fair Conclusion Normal biventricular systolic function. Mild RV dilation. Mild biatrial dilation. Moderate TR. Mild AI, mild MR, mild PI. RVSP 30-35 mmHg. Electronically signed by : Terra Dickens MD 05/14/2024 00:01:38
== END 2024-05-07 23:59 | disposition home or self-care (01) ==
PROVIDERS: PCP Internal Medicine; Visit Provider Internal Medicine
DX: I51.7 Cardiomegaly (principal); I25.10 Atherosclerotic heart disease of native coronary artery without angina pectoris
CPT/HCPCS: 93306

== ENCOUNTER 2025-07-01 13:27 | Outpatient (CLI) | payer MEDICARE, SELFPAY ==
--- NOTE | 2025-07-01 14:30 | CA_ITS ---
APPROVED REPORT EXAM: Comprehensive 2D, Doppler, and color-flow Echocardiogram Medical Receptionist Biller: Promise Urrutia RT(R) Ht: 5 ft 9 in Wt: 182lbs BSA: 1.99 BP: 155/88 mmHg Indications: CAD, AFIB, pacemaker 2D Dimensions LA Volume 10.30 mL LA Volume Index 5.18 mL/m2 (M/F) 16-34 EF AP2 10.5 % GL Strain -3.7 % M-Mode Dimensions RVDd 2.38 cm (0.9-2.6) LA Diam 3.28 cm (1.9-4.0) LVDd 4.99 cm (3.5-5.7) LVDs 3.06 cm (3.5-5.7) IVSd 0.87 cm (0.6-1.1) PWd 0.95 cm (0.6-1.1) EF (Teich) 68.80% FS 38.70% EDV (Teich) 117.70 mL ESV (Teich) 36.70 mL LV Diastology E Decel Time 227 (160-240 msec) E/A Ratio 0.6 Mitral Valve MV E Max Suleman. 69.0 (40-130 cm/s) MV A Velocity 108.0 (40-130 cm/s) E/A Ratio 0.64 MV PHT 66.0 ms Tricuspid Valve TR P. Velocity 310.00 cm/s Left Ventricle The left ventricle is normal size. Left ventricular systolic function is normal. The left ventricular ejection fraction is within the normal range. There is increased left ventricular wall thickness. There is normal LV segmental wall motion. The left ventricular diastolic function is indeterminate. LVEF is 55% Right Ventricle The right ventricle is mildly dilated. The right ventricular systolic function is normal. Atria The left atrium is mildly dilated. The right atrium is mildly dilated. There is no color Doppler evidence of interatrial shunt. Aortic Valve The aortic valve is mildly thickened. There is no hemodynamically significant aortic valvular stenosis. Mild aortic regurgitation is present. Mitral Valve The mitral valve is normal in structure. No evidence of mitral valve stenosis. Mild mitral regurgitation is present. Tricuspid Valve The tricuspid valve leaflets are thin and pliable. Mild tricuspid regurgitation. RVSP is 25-30 mmHg. Pulmonic Valve The pulmonary valve is grossly normal in structure. Trace pulmonic valve regurgitation is present. Great Vessels The aortic root is normal in size. IVC is normal in size and collapses >50% with inspiration. Pericardium There is no pericardial effusion. Other Information Study Quality: Fair Conclusion Normal biventricular systolic function. Mild RV dilation. Mild biatrial dilation. Mild AI, mild MR, mild TR. Electronically signed by : Terra Dickens MD 07/02/2025 12:56:33
== END 2025-07-01 23:59 | disposition home or self-care (01) ==
LOC: RT 13:27
PROVIDERS: PCP Internal Medicine; Visit Provider Internal Medicine
DX: I08.3 Combined rheumatic disorders of mitral, aortic and tricuspid valves (principal); I11.9 Hypertensive heart disease without heart failure; I25.10 Atherosclerotic heart disease of native coronary artery without angina pectoris; I48.91 Unspecified atrial fibrillation; I65.29 Occlusion and stenosis of unspecified carotid artery; K55.1 Chronic vascular disorders of intestine; Z95.0 Presence of cardiac pacemaker
CPT/HCPCS: 93306